=== PATIENT | female | born 1980 | race American Indian/Alaskan Native ===

== ENCOUNTER 2016-11-11 10:29 | Emergency (ER) | payer OTHER ==
[2016-11-11 10:34] VITALS: BP 138/89; RESP 20; TEMP 98; BMI 21.9
[2016-11-11 10:46] VITALS: O2SAT 98
[2016-11-11] MEDS ORDERED: Sodium Chloride 0.9% 1,000 ML IV STA (10:58)
--- NOTE | 2016-11-11 11:41 | ED PDOC ---
HPI: General Adult Time Seen by Provider: 11/11/16 10:53 Chief Complaint (Nursing): Palpitations Chief Complaint (Provider): palpitations History Per: Patient History/Exam Limitations: no limitations Onset/Duration Of Symptoms: Days (x 4) Current Symptoms Are (Timing): Intermittent Episodes Additional Complaint(s): Brigitte Castillo is a 36 year old female, with a previous medical history of mitro valve prolapse and mitrogurgitation, who presents to the ED with complaints of dizziness associated with palpitations, a throbbing sensation in the right temporal area, mild dyspnea and right leg pain with swelling intermittently ongoing for the past 4 days. Patient denies any headache, chest pain, fever, chills or syncope. She reports not having followed up with a odd bundle worker in years. PMD: none provided Past Medical History Reviewed: Historical Data, Nursing Documentation, Vital Signs Vital Signs: Last Vital Signs Temp 98 F 11/11/16 10:33 Pulse 82 11/11/16 14:43 Resp 20 11/11/16 10:33 BP 138/89 11/11/16 10:33 Pulse Ox 98 11/11/16 14:43 - Medical History PMH: Migraine Other PMH: mitral valve prolapse and mitrogurgitation - Surgical History Surgical History: Cholecystectomy, Tonsillectomy - Family History Family History: States: Unknown Family Hx - Social History Current smoker - smoking cessation education provided: No Alcohol: None Drugs: Denies - Allergies Allergies/Adverse Reactions: Allergies Allergy/AdvReac Type Severity Reaction Status Date / Time aspirin Allergy ANAPHYLAXIS Verified 11/11/16 10:43 NSAIDS (Non-Steroidal Allergy ANAPHYLAXIS Verified 11/11/16 10:43 Anti-Inflamma Review of Systems ROS Statement: Except As Marked, All Systems Reviewed And Found Negative Constitutional: Negative for: Fever, Chills Cardiovascular: Positive for: Palpitations. Negative for: Chest Pain Respiratory: Positive for: Shortness of Breath Musculoskeletal: Positive for: Leg Pain (right) Neurological: Positive for: Dizziness. Negative for: Headache Physical Exam - Reviewed Nursing Documentation Reviewed: Yes Vital Signs Reviewed: Yes - Physical Exam Appears: Positive for: Well, Non-toxic, No Acute Distress Head Exam: Positive for: ATRAUMATIC, NORMAL INSPECTION, NORMOCEPHALIC Skin: Positive for: Normal Color, Warm, Dry Eye Exam: Positive for: EOMI, Normal appearance, PERRL ENT: Positive for: Normal ENT Inspection, TM Is/Are (normal ) Neck: Positive for: Normal, Painless ROM, Supple Cardiovascular/Chest: Positive for: Regular Rate, Rhythm Respiratory: Positive for: Normal Breath Sounds. Negative for: Decreased Breath Sounds, Accessory Muscle Use, Crackles, Rales, Rhonchi, Wheezing, Respiratory Distress Gastrointestinal/Abdominal: Positive for: Normal Exam, Bowel Sounds, Soft. Negative for: Tenderness Back: Positive for: Normal Inspection Extremity: Positive for: Normal ROM, Pedal Edema (mild right leg 1+ nonpitting edema), Capillary Refill (< 2 seconds ). Negative for: Calf Tenderness, Deformity Neurologic/Psych: Positive for: Alert, Oriented. Negative for: Motor/Sensory Deficits - Laboratory Results Result Diagrams: 11/11/16 12:02 11/11/16 12:02 - ECG ECG Rhythm: Positive for: Sinus Rhythm. Negative for: ST/T Changes Rate: 82 (bpm) O2 Sat by Pulse Oximetry: 98 (RA) Pulse Ox Interpretation: Normal Medical Decision Making Medical Decision Making: Initial Impression: Dyspnea and Palpitations r/o Deep Vein Thrombosis Initial Plan: * EKG * labs * TSH * Troponin I * urine * D-dimer * urinalysis * IV NS 1,000 ml at 1,000 ml/hr * US duplex lower extremity * Lopressor 25 mg PO * reevaluation 12:56 US duplex lower extremity FINDINGS: COMMON FEMORAL VEIN: Unremarkable. SUPERFICIAL FEMORAL VEIN: Unremarkable. POPLITEAL VEIN: Unremarkable. POSTERIOR TIBIAL VEIN: Unremarkable. OTHER FINDINGS: None. IMPRESSION: No evidence of deep venous thrombosis in the right lower extremity. labs reviewed DDimer WNL normal Hgb chem clinically unremarkable Improved in ED after IVF and metoprolol. Followup cardio for repeat echo given history and symptoms. Return ER for any new or worsening symptoms. Scribe Attestation: Documented by Ni Arias, acting as a scribe for Jake Castro III, D.O. Provider Scribe Attestation: All medical record entries made by the Scribe were at my direction and personally dictated by me. I have reviewed the chart and agree that the record accurately reflects my personal performance of the history, physical exam, medical decision making, and the department course for this patient. I have also personally directed, reviewed, and agree with the discharge instructions and disposition. Disposition - Clinical Impression Clinical Impression: Palpitations, Leg edema, right - Patient ED Disposition Is Patient to be Admitted: No Counseled Patient/Family Regarding: Studies Performed, Diagnosis, Need For Followup - Disposition Referrals: Skyler Oswald MD [Staff Provider] - Jensen Hernandez MD [Staff Provider] - Disposition: Routine/Home Disposition Time: 14:35 Condition: STABLE Additional Instructions: Followup with PMD and cardiology for further testing. Return to ER for any worse or new symptoms. Instructions: Palpitations (ED), Leg Edema (ED), Dizziness (ED) Forms: [employer] (Maltese)
[2016-11-11 11:52] VITALS: PULSE 82
[2016-11-11 12:06] LABS: BASO # 0.1 K/uL (0.0-0.2); BASO % 0.6 % (0.0-2.0); EOS # 0.4 K/uL (0.0-0.7); HEMATOCRIT 39.1 % (34.0-47.0); LYMPH # 2.7 K/uL (1.0-4.3); LYMPH % 22.1 % (20.0-40.0); MEAN CELL VOLUME 71.3 fl (81.0-99.0); MEAN CORPUSCULAR HGB CONC 32.3 g/dL (33.0-37.0); MEAN PLATELET VOLUME 9.5 fl (7.2-11.7); MONO # 1.1 K/uL (0.0-0.8); MONO % 9.2 % (0.0-10.0); NEUT % 65.1 % (50.0-75.0); NRBC % 0.1 % (0.0-0.0); RED CELL DISTRIBUTION WIDTH 15.7 % (11.5-14.5); WHITE BLOOD COUNT 12.3 K/uL (4.8-10.8)
[2016-11-11 12:12] LABS: RBC URINE 2 /hpf (0-3); URINE BILIRUBIN NEGATIVE (NEGATIVE); URINE BLOOD NEGATIVE (NEGATIVE); URINE COLOR YELLOW (YELLOW); URINE GLUCOSE (UA) NEG (Normal); URINE KETONE NEGATIVE (NEGATIVE); URINE LEUKOCYTE ESTERASE NEG Leu/uL (Negative); URINE PROTEIN NEGATIVE (NEGATIVE); URINE UROBILINOGEN 0.2-1.0 mg/dL (0.2-1.0); WBC URINE 1 /hpf (0-5)
[2016-11-11 12:19] LABS: CHLORIDE 102 mmol/L (98-107)
[2016-11-11 12:20] LABS: SODIUM 136 mmol/l (132-148)
[2016-11-11 12:22] LABS: CARBON DIOXIDE 26 mmol/L (22-30); GFR AFRICAN-AMERICAN > 60
[2016-11-11 12:23] LABS: ALB/GLOB RATIO 1.1 (1.0-2.1); ALKALINE PHOSPHATASE 59 U/L (38-126); ALT/SGPT 32 U/L (9-52); AST/SGOT 33 U/L (14-36); BILIRUBIN,TOTAL 0.7 mg/dl (0.2-1.3); BLOOD UREA NITROGEN 8 mg/dl (7-17); CALCIUM 9.2 mg/dL (8.4-10.2); GLUCOSE,RANDOM 82 mg/dL (65-105); TOTAL PROTEIN 8.6 G/DL (6.3-8.2)
[2016-11-11 12:29] LABS: POTASSIUM 4.2 MMOL/L (3.6-5.0)
--- NOTE | 2016-11-11 12:57 | US ---
PROCEDURE: Right lower extremity venous duplex Doppler. HISTORY: RLE pain/swelling COMPARISON: None available. TECHNIQUE: Common femoral, superficial femoral, popliteal and posterior tibial veins were evaluated. Flow was assessed with color Doppler, compressibility, assessment of phasic flow and augmentation response. FINDINGS: COMMON FEMORAL VEIN: Unremarkable. SUPERFICIAL FEMORAL VEIN: Unremarkable. POPLITEAL VEIN: Unremarkable. POSTERIOR TIBIAL VEIN: Unremarkable. OTHER FINDINGS: None. IMPRESSION: No evidence of deep venous thrombosis in the right lower extremity.
[2016-11-11 13:02] LABS: THYROID STIMULATING HORMONE 1.78 mIU/ML (0.46-4.68)
--- NOTE | 2016-11-11 19:33 | CARD ---
APPROVED REPORT EKG Measurement Heart [id number] <Conclusion> Normal sinus rhythm Possible Left atrial enlargement Borderline ECG
== END 2016-11-11 15:35 | disposition home or self-care (01) ==
LOC: H.ER 10:29
DX: R00.2 Palpitations (principal); R60.0 Localized edema

== ENCOUNTER 2016-12-27 16:15 | Emergency (ER) | payer OTHER ==
[2016-12-27 16:15] VITALS: BMI 21.9
[2016-12-27 16:45] VITALS: BP 121/73; PULSE 84; RESP 16; TEMP 98.5; O2SAT 100
--- NOTE | 2016-12-27 17:14 | ED PDOC ---
HPI: General Adult Chief Complaint (Nursing): Abnormal Skin Integrity Chief Complaint (Provider): Abnormal Skin Integrity History Per: Patient History/Exam Limitations: no limitations Onset/Duration Of Symptoms: Days Current Symptoms Are (Timing): Still Present Additional Complaint(s): Brigitte Castillo is a 36 year old female that presents to the ED with a chief complaint of bug bites on her right arm and bilateral legs that she states she noticed this morning and have since greatly increased in size. Patient reports that she went into her garage last night to place something inside, but otherwise is unaware of any possible exposure to bugs. Past Medical History Reviewed: Historical Data, Nursing Documentation, Vital Signs Vital Signs: Last Vital Signs Temp 98.5 F 12/27/16 16:43 Pulse 84 12/27/16 16:43 Resp 16 12/27/16 16:43 BP 121/73 12/27/16 16:43 Pulse Ox 100 12/27/16 17:18 - Medical History PMH: Migraine - Surgical History Surgical History: Cholecystectomy, Tonsillectomy - Family History Family History: States: Unknown Family Hx - Home Medications Home Medications: Ambulatory Orders Medication Instructions Recorded DiphenhydrAMINE [Benadryl] 1 - 2 tab PO Q6 PRN #20 cap 12/27/16 Hydrocortisone 1% Cream [Cortizone 0.5 gm TP BID #1 tube 12/27/16 1% Cream] - Allergies Allergies/Adverse Reactions: Allergies Allergy/AdvReac Type Severity Reaction Status Date / Time aspirin Allergy ANAPHYLAXIS Verified 11/11/16 10:43 NSAIDS (Non-Steroidal Allergy ANAPHYLAXIS Verified 11/11/16 10:43 Anti-Inflamma Review of Systems ROS Statement: Except As Marked, All Systems Reviewed And Found Negative Skin: Positive for: Other (bug bites on right arm and bilateral legs) Physical Exam - Reviewed Nursing Documentation Reviewed: Yes Vital Signs Reviewed: Yes - Physical Exam Appears: Positive for: Non-toxic, No Acute Distress Head Exam: Positive for: ATRAUMATIC, NORMOCEPHALIC Skin: Positive for: Normal Color, Warm, Rash (4 sporadic insect bites on right arm and b/l legs. ) Extremity: Positive for: Other (2 cm induration noted to right interior thigh with minimal surrounding erythema.). Negative for: Tenderness Neurologic/Psych: Positive for: Alert, Oriented. Negative for: Motor/Sensory Deficits - ECG O2 Sat by Pulse Oximetry: 100 (RA) Pulse Ox Interpretation: Normal Medical Decision Making Medical Decision Making: Impression: Insect Bites Plan: * Patient given Rx for Benadryl and Hydrocortisone 1% cream, advised to follow up with Dr. Monroe. Patient stable for discharge home. Scribe Attestation: Documented by Vy Gold, acting as a scribe for Suzie Lomeli PA-C. Provider Scribe Attestation: All medical record entries made by the Scribe were at my direction and personally dictated by me. I have reviewed the chart and agree that the record accurately reflects my personal performance of the history, physical exam, medical decision making, and the department course for this patient. I have also personally directed, reviewed, and agree with the discharge instructions and disposition. Disposition - Clinical Impression Clinical Impression: Insect bite - Patient ED Disposition Is Patient to be Admitted: No Counseled Patient/Family Regarding: Rx Given - Disposition Referrals: Jamal Monroe MD [Staff Provider] - Disposition: Routine/Home Disposition Time: 17:00 Condition: FAIR Prescriptions: DiphenhydrAMINE [Benadryl] 1 - 2 tab PO Q6 PRN #20 cap PRN Reason: Itching / Pruritus Hydrocortisone 1% Cream [Cortizone 1% Cream] 0.5 gm TP BID #1 tube Instructions: Insect Bite or Sting (ED) Forms: [employer] (Gabonese), [facility] ED School/Work Excuse
== END 2016-12-27 18:04 | disposition home or self-care (01) ==
LOC: H.ER 16:15
DX: T14.8 Other injury of unspecified body region (principal); W57.XXXA Bitten or stung by nonvenomous insect and other nonvenomous arthropods, initial encounter; Y92.89 Other specified places as the place of occurrence of the external cause

== ENCOUNTER 2018-01-09 07:47 | Emergency (ER) | payer OTHER ==
[2018-01-09 07:51] VITALS: BMI 33.0
[2018-01-09 07:54] VITALS: TEMP 98.6
--- NOTE | 2018-01-09 08:09 | ED PDOC ---
HPI: CCC, URI, Sore Throat Time Seen by Provider: 01/09/18 07:59 History Per: Patient Onset/Duration Of Symptoms: Days (3) Current Symptoms Are (Timing): Still Present Location Of Pain: Throat, Sinus/es Sick Contacts (Context): None Associated Symptoms: Sore Throat, Cough, Nasal Congestion. denies: Fever Severity: Mild Additional Complaint(s): Nasal congestion assoc with clear rhinorrhea and nonproductive cough. No improvement with OTC meds including Lyudmila seltzer and Nyquil. Denies fever or sinus pain Past Medical History Vital Signs: Last Vital Signs Temp 98.6 F 01/09/18 07:53 Pulse 95 H 01/09/18 07:53 Resp 20 01/09/18 07:53 BP 124/81 01/09/18 07:53 Pulse Ox 99 01/09/18 07:53 - Medical History PMH: Migraine - Surgical History Surgical History: Cholecystectomy, Tonsillectomy - Family History Family History: States: Unknown Family Hx - Home Medications Home Medications: Ambulatory Orders Medication Instructions Recorded DiphenhydrAMINE [Benadryl] 1 - 2 tab PO Q6 PRN #20 cap 12/27/16 Hydrocortisone 1% Cream [Cortizone 0.5 gm TP BID #1 tube 12/27/16 1% Cream] Fluticasone Nasal [Flonase] 1 actuation NS DAILY #1 spr 01/09/18 - Allergies Allergies/Adverse Reactions: Allergies Allergy/AdvReac Type Severity Reaction Status Date / Time aspirin Allergy ANAPHYLAXIS Verified 11/11/16 10:43 NSAIDS (Non-Steroidal Allergy ANAPHYLAXIS Verified 11/11/16 10:43 Anti-Inflamma Review of Systems Constitutional: Negative for: Fever, Chills ENT: Positive for: Nose Congestion, Throat Pain Respiratory: Positive for: Cough Physical Exam - Physical Exam Appears: Positive for: Non-toxic, No Acute Distress Skin: Positive for: Normal Color, Warm, DRY ENT: Positive for: Normal ENT Inspection. Negative for: Sinus Pain/Drainage, Pharyngeal Erythema Neck: Positive for: Normal, Painless ROM Cardiovascular/Chest: Positive for: Regular Rate, Rhythm - ECG O2 Sat by Pulse Oximetry: 99 Disposition - Clinical Impression Clinical Impression: Upper respiratory infection - Disposition Referrals: [facility] [Outside] Disposition: Routine/Home Disposition Time: 08:09 Condition: FAIR Prescriptions: Fluticasone Nasal [Flonase] 1 actuation NS DAILY #1 spr Instructions: Viral Upper Respiratory Infection, Adult (DC)
[2018-01-09 08:25] VITALS: BP 122/78; PULSE 82; RESP 18; O2SAT 100
== END 2018-01-09 08:20 | disposition home or self-care (01) ==
LOC: H.ER 07:47
DX: J06.9 Acute upper respiratory infection, unspecified (principal)

== ENCOUNTER 2018-01-27 19:36 | Emergency (ER) | payer SELFPAY ==
[2018-01-27 19:37] VITALS: BMI 33.0
[2018-01-27 19:45] VITALS: O2SAT 100
[2018-01-27] MEDS ORDERED: Iohexol 240 (50 ml) PO STA (20:06)
[2018-01-27] MEDS ORDERED: Sodium Chloride 0.9% 1,000 ML IV STA (20:37)
[2018-01-27 20:38] LABS: BASO # 0.1 K/uL (0.0-0.2); BASO % 0.6 % (0.0-2.0); EOS # 0.2 K/uL (0.0-0.7); EOS % 1.6 % (0.0-4.0); HEMOGLOBIN 11.2 g/dL (12.0-16.0); LYMPH # 2.4 K/uL (1.0-4.3); LYMPH % 16.5 % (20.0-40.0); MEAN CELL VOLUME 69.6 fl (81.0-99.0); MEAN CORPUSCULAR HEMOGLOBIN 22.8 pg (27.0-31.0); MEAN CORPUSCULAR HGB CONC 32.7 g/dL (33.0-37.0); MEAN PLATELET VOLUME 9.7 fl (7.2-11.7); MONO # 1.4 K/uL (0.0-0.8); MONO % 9.4 % (0.0-10.0); NEUT # 10.6 K/uL (1.8-7.0); NEUT % 71.9 % (50.0-75.0); RBC 4.91 Mil/uL (3.80-5.20); RED CELL DISTRIBUTION WIDTH 15.7 % (11.5-14.5); WHITE BLOOD COUNT 14.7 K/uL (4.8-10.8)
[2018-01-27 20:47] LABS: ALB/GLOB RATIO 1.2 (1.0-2.1); ALBUMIN 4.1 g/dL (3.5-5.0); ALT/SGPT 59 U/L (9-52); AST/SGOT 42 U/L (14-36); BLOOD UREA NITROGEN 7 mg/dl (7-17); CALCIUM 9.1 mg/dL (8.4-10.2); GFR NON-AFRICAN AMERICAN > 60
[2018-01-27 20:50] LABS: INR 1.1; PROTHROMBIN TIME 11.9 Seconds (9.8-13.1)
[2018-01-27] MEDS ORDERED: Morphine 4 MG/ML VIAL ONE (20:51)
[2018-01-27 20:53] LABS: PARTIAL THROMBOPLASTIN TIME 30.6 Seconds (25.6-37.1)
--- NOTE | 2018-01-27 20:54 | ED PDOC ---
HPI: Abdomen Time Seen by Provider: 01/27/18 19:47 Chief Complaint (Nursing): Abdominal Pain Chief Complaint (Provider): abdominal pain History Per: Patient History/Exam Limitations: no limitations Onset/Duration Of Symptoms: Days (x5) Current Symptoms Are (Timing): Still Present Associated Symptoms: Chills, Nausea, Vomiting, Loss Of Appetite. denies: Fever , Diarrhea, Constipation, Urinary Symptoms Additional Complaint(s): Brigitte Castillo is a 37 year old female, with a past medical history of fibroids, who presents to the emergency department complaining of lower abdominal and pelvic pain that radiates to her back associated with intermittent nausea, vomiting, decreased appetite and chills onset for x5 days. She has been taking Tylenol with minimal relief. She denies any fever, diarrhea, constipation or urinary symptoms. However, she reports having abnormal spotting since Monday. She reports similar symptoms in the past from fibroids, but this time it has been more prolonged than the typical spotting. Patient had a last normal period on January 12. She denies any abnormal vaginal discharge. No further medical complaints PMD: None [employer]: in [place]. Past Medical History Reviewed: Historical Data, Nursing Documentation, Vital Signs Vital Signs: Last Vital Signs Temp 98.6 F 01/28/18 00:27 Pulse 88 01/28/18 00:27 Resp 16 01/28/18 00:27 BP 127/76 01/28/18 00:27 Pulse Ox 100 01/28/18 00:27 - Medical History PMH: Bronchitis, Migraine Other PMH: fibroids - Surgical History Surgical History: Cholecystectomy, Tonsillectomy Other surgeries: myomectomy in 2013 - Family History Family History: States: Hypertension Other Family History: Fibroids, ovarian and bone cancer. - Social History Current smoker - smoking cessation education provided: No Alcohol: Social - Home Medications Home Medications: Ambulatory Orders Medication Instructions Recorded DiphenhydrAMINE [Benadryl] 1 - 2 tab PO Q6 PRN #20 cap 12/27/16 Hydrocortisone 1% Cream [Cortizone 0.5 gm TP BID #1 tube 12/27/16 1% Cream] Fluticasone Nasal [Flonase] 1 actuation NS DAILY #1 spr 01/09/18 traMADol [Ultram] 50 mg PO TID #15 tab 01/28/18 - Allergies Allergies/Adverse Reactions: Allergies Allergy/AdvReac Type Severity Reaction Status Date / Time aspirin Allergy ANAPHYLAXIS Verified 01/27/18 19:43 NSAIDS (Non-Steroidal Allergy ANAPHYLAXIS Verified 01/27/18 19:43 Anti-Inflamma Review of Systems ROS Statement: Except As Marked, All Systems Reviewed And Found Negative Constitutional: Positive for: Chills. Negative for: Fever Gastrointestinal: Positive for: Nausea, Vomiting, Abdominal Pain. Negative for : Diarrhea, Constipation Genitourinary Female: Positive for: Pelvic Pain, Other (vaginal spotting). Negative for: Dysuria, Frequency, Vaginal Discharge Musculoskeletal: Positive for: Back Pain Physical Exam - Reviewed Nursing Documentation Reviewed: Yes Vital Signs Reviewed: Yes - Physical Exam Appears: Positive for: In Acute Distress (mild painful distress and tired appearing) Head Exam: Positive for: ATRAUMATIC, NORMAL INSPECTION, NORMOCEPHALIC Skin: Positive for: Warm, Dry, Pallor (some) Eye Exam: Positive for: Normal appearance ENT: Positive for: Pharynx Is (clear). Negative for: Pharyngeal Erythema, Tonsillar Exudate Neck: Positive for: Painless ROM, Supple Cardiovascular/Chest: Positive for: Regular Rate, Rhythm, Chest Non Tender. Negative for: Murmur Respiratory: Positive for: Normal Breath Sounds. Negative for: Wheezing Gastrointestinal/Abdominal: Positive for: Soft, Tenderness (to palpation on bilateral lower quadrants and suprapubic area). Negative for: Mass, Guarding, Rebound Back: Positive for: Normal Inspection. Negative for: Decreased ROM Extremity: Positive for: Normal ROM. Negative for: Deformity Lymphatic: Negative for: Adenopathy Neurologic/Psych: Positive for: Alert, Oriented. Negative for: Motor/Sensory Deficits - Laboratory Results Result Diagrams: 01/27/18 20:33 01/27/18 20:33 - ECG O2 Sat by Pulse Oximetry: 100 (RA) Pulse Ox Interpretation: Normal Medical Decision Making Medical Decision Making: Time: 19:47 Initial Impression: abdominal pain. Differential includes but not limited to fibroids, colitis, appendicitis, PID, cystitis and diverticulitis. Initial Plan: --Type and screen --Abd Pelvis PO & IV Contrast [CT] --CMP --Drug screen, urine --Urine --Urine dipstick --CBC w/ differential --PTT --PT --Chlamydia/GC RNA, TMA --Morphine 4 mg IVP --Sodium Chloride 1,000 ml IV 1,000 mls/hr --Omnipaque 240 50 ml Poo --Zofran Inj 4 mg IVP --Urinalysis --Transvaginal [US] --Reevaluation 22:45 Transvaginal US FINDINGS: Uterus/cervix: Multiple fibroids are noted in the uterus which is heterogeneous. The largest fibroid appears to measure 4.2 x 3 x 3 cm. There is a 1.7 x 1.4 cm hyperechoic nodule within the endometrium which is indeterminate correlate endometrial polyp or other mass. Right ovary: 2 cysts are noted in the right ovary which are complex not simple cystic fluid, possible hemorrhagic cysts or endometriomas. The larger collection measures 3.6 x 1.7 x 2 cm. Normal blood flow. Left ovary: Follicles are noted in the left ovary. Normal blood flow. Free fluid: No free fluid. IMPRESSION: 1. Multiple fibroids are noted in the uterus which is heterogeneous. The largest fibroid appears to measure 4.2 x 3 x 3 cm. 2. 2 cysts are noted in the right ovary which are complex not simple cystic fluid, possible hemorrhagic cysts or endometriomas. The larger collection measures 3.6 x 1.7 x 2 cm. 3. There is a 1.7 x 1.4 cm hyperechoic nodule within the endometrium which is indeterminate correlate endometrial polyp or other mass. 23:55 CT ABD/pelvis FINDINGS: Lower thorax: Atelectasis in the bases. ABDOMEN: Liver: Normal. No mass. Gallbladder and bile ducts: Cholecystectomy. Pancreas: Normal. No ductal dilation. Spleen: Normal. No splenomegaly. Adrenals: Normal. No mass. Kidneys and ureters: Normal. No hydronephrosis. Stomach and bowel: Moderate fecal retention. Appendix: No evidence of appendicitis. PELVIS: Bladder: Unremarkable as visualized. Reproductive: Enlarged enhancing uterus which is heterogeneous consistent with fibroids as seen on sonogram. In addition, complex right ovarian lesions are noted as seen on sonogram. ABDOMEN and PELVIS: Intraperitoneal space: Normal. No free air. No significant fluid collection. Bones/joints: No acute fracture. No dislocation. Soft tissues: Small echogenic umbilifat containing umbilical meka hernia. Vasculature: Normal. No abdominal aortic aneurysm. Lymph nodes: Normal. No enlarged lymph nodes. IMPRESSION: 1. Cholecystectomy. 2. Moderate fecal retention. 3. Enlarged enhancing uterus which is heterogeneous consistent with fibroids as seen on sonogram. In addition, complex right ovarian lesions are noted as seen on sonogram DW w patient findings of imaging at length. Advised need to urgently follow up with accounting representative and even pelvic specialist for possible endometrosis (contact info given for Dr Nicholas). Symptomatic control for now. Reasons to RTER reviewed with patient. ----- Scribe Attestation: Documented by Wilfredo Washburn, acting as a scribe for Lamar Vargas MD. Provider Scribe Attestation: All medical record entries made by the Scribe were at my direction and personally dictated by me. I have reviewed the chart and agree that the record accurately reflects my personal performance of the history, physical exam, medical decision making, and the department course for this patient. I have also personally directed, reviewed, and agree with the discharge instructions and disposition. Disposition - Clinical Impression Clinical Impression: Fibroids, Ovarian cyst, complex, Abdominal pain - Disposition Referrals: [facility] [Outside] Benja Nicholas [Medical Doctor] - Disposition: Routine/Home Disposition Time: 15:00 Condition: IMPROVED Additional Instructions: FOLLOW UP WITH YOUR CORN DETASSELER OR ZHAO MARINELLI OR DR NICHOLAS FOR FURTHER MANAGEMENT. REST AND DRINK PLENTY OF HYDRATING FLUIDS TAKE TYLENOL FOR MODERATE PAIN. TAKE TRAMADOL FOR SEVERE PAIN. Prescriptions: traMADol [Ultram] 50 mg PO TID #15 tab Instructions: Ovarian Cyst (DC), Uterine Fibroids (DC) Forms: [facility] ED School/Work Excuse
[2018-01-27 21:11] LABS: SQUAMOUS EPITHIAL 7 /hpf (0-5); URINE BACTERIA RARE (<OCC); URINE BILIRUBIN NEGATIVE (NEGATIVE); URINE BLOOD LARGE (NEGATIVE); URINE CLARITY CLOUDY (Clear); URINE COLOR AMBER (YELLOW); URINE GLUCOSE (UA) NEG (Normal); URINE HYALINE CAST 0-2 /hpf (0-2); URINE LEUKOCYTE ESTERASE TRACE Leu/uL (Negative); URINE PROTEIN 30 mg/dL (NEGATIVE)
[2018-01-27] MEDS ORDERED: Iohexol 300 100 ML IJ ONE (23:26)
[2018-01-27] MEDS ORDERED: Sodium Chloride 0.9% 50 ML IV ONE (23:26)
[2018-01-28 00:27] VITALS: BP 127/76; PULSE 88; RESP 16; TEMP 98.6
--- NOTE | 2018-01-28 08:53 | CT ---
Date of service: 01/27/2018 PROCEDURE: CT Abdomen and Pelvis with contrast HISTORY: lower abd pain nausea and vomit COMPARISON: None. TECHNIQUE: Contrast dose: Radiation dose: Total exam DLP = mGy-cm. This CT exam was performed using one or more of the following dose reduction techniques: Automated exposure control, adjustment of the mA and/or kV according to patient size, and/or use of iterative reconstruction technique. FINDINGS: LOWER THORAX: Unremarkable. LIVER: Unremarkable. No gross lesion or ductal dilatation. GALLBLADDER AND BILE DUCTS: Cholecystectomy. . PANCREAS: Unremarkable. No gross lesion or ductal dilatation. SPLEEN: Unremarkable. ADRENALS: Unremarkable. No mass. KIDNEYS AND URETERS: Unremarkable. No hydronephrosis. No solid mass. VASCULATURE: Unremarkable. No aortic aneurysm. BOWEL: Unremarkable. No obstruction. No gross mural thickening. APPENDIX: Normal appendix. PERITONEUM: Unremarkable. No free fluid. No free air. LYMPH NODES: Unremarkable. No enlarged lymph nodes. BLADDER: Unremarkable. REPRODUCTIVE: Enlarged leiomyomatous uterus with a roughly 3 centimeter right adnexal cystic lesion. Correlate with pelvic ultrasound. BONES: No acute fracture. OTHER FINDINGS: None. IMPRESSION: Enlarged leiomyomatous uterus with a roughly 3 centimeter right adnexal cystic lesion. Correlate with pelvic ultrasound.
--- NOTE | 2018-01-28 09:37 | US ---
Date of service: 01/27/2018 PROCEDURE: HISTORY: pelvic pain r/o PID COMPARISON: TECHNIQUE: FINDINGS: Leiomyomatous uterus with the largest fibroid measuring 4.2 centimeters. 1.7 centimeter hyperechoic nodule in the endometrial cavity which is indeterminate and could represent a polyp or intracavitary myoma. Two complex cysts present in the right ovary . The larger measuring 3.6 centimeters. Normal left ovary. No free fluid the pelvis. IMPRESSION: As above.
== END 2018-01-28 00:33 | disposition home or self-care (01) ==
LOC: H.ER 19:36
DX: D25.9 Leiomyoma of uterus, unspecified (principal); N83.201 Unspecified ovarian cyst, right side; K52.9 Noninfective gastroenteritis and colitis, unspecified; Z90.49 Acquired absence of other specified parts of digestive tract; K59.00 Constipation, unspecified
CPT/HCPCS: 74177; 76830; 80053; 81003; 81025; 85025; 85610; 85730; 86850; 86900; 87491; 87591; 96374; 96375; 99283; J2270; J2405; J7030; Q9966; Q9967